=== PATIENT | male | born 1995 | race Caucasian/White ===

== ENCOUNTER 2017-10-27 19:50 | Emergency (ER) | payer OTHER ==
[2017-10-28] MEDS: IBUPROFEN 600 MG TAB PO (00:46)
[2017-10-28 01:51] LABS: MONOTEST Negative (NEG)
== END 2017-10-28 02:16 | disposition home or self-care (01) ==
LOC: FTE 19:50
DX: J02.9 Acute pharyngitis, unspecified (principal); F41.9 Anxiety disorder, unspecified; R07.89 Other chest pain
CPT/HCPCS: 86308; 87880; 93005; 99283